=== PATIENT | female | born 1995 | race Caucasian/White ===

== ENCOUNTER 2022-02-23 22:04 | Emergency (ER) | payer OTHER, SELFPAY ==
--- NOTE | ~2022-02-23 | US_ITS ---
EXAMINATION: US OB <=14 wk fetus w TV DATE: 02/24/2022 02:23 INDICATION: Bleeding during first trimester TECHNIQUE: Real-time pelvic transabdominal and transvaginal ultrasound was performed. COMPARISON: None. FINDINGS: The uterus measures 8.1 x 5.4 x 4.1 cm. The endometrial thickness measures 11 mm. No intra uterine gestational sac is identified. The right ovary measures 1.6 x 2.0 x 2.1 cm. The left ovary m easures 3.4 x 2.8 x 2.8 cm. There is normal vascular flow in the ovaries. There is a small amount of free fluid in the pelvis. IMPRESSION: 1. of unknown location. Although no intrauterine gestational sac is seen, this may be due t o early gestation. If the patient is clinically stable, recommend followup with serial beta-hCG and u ltrasound. 2. Small alignment of free fluid in the pelvis of unclear etiology or significance. Reviewed, dictated and finalized at location B. IMPRESSION: 1. of unknown location. Although no intrauterine gestational sac is s een, this may be due to early gestation. If the patient is clinically stable, r ecommend followup with serial beta-hCG and ultrasound. 2. Small alignment of free fluid in the pelvis of unclear etiology or significa nce.
[2022-02-23 22:12] VITALS: BP 145/88; PULSE 87; RESP 18; TEMP 36.6; O2SAT 100
[2022-02-24] VITALS (25 sets, daily range): BP systolic 102–135; BP diastolic 57–76; PULSE 69–95; RESP 16–32; O2SAT 96–100
--- NOTE | 2022-02-24 00:08 | ED.GENADULT ---
HPI - General Adult General Chief complaint: Vaginal Bleeding Stated complaint: complications Time Seen by Provider: 02/23/22 23:55 Source: patient Mode of arrival: ambulatory Limitations: no limitations History of Present Illness HPI narrative: Patient is a 27 y/o female who presents to the ED with c/o vaginal spotting. Patient reports she had several positive home test last week. She developed slight lower abdominal cramping today. Then she also noticed vaginal spotting when she wiped her self after using the restroom. She placed a pad afterwards and noticed several drops of blood on the pad. She was seen in ED in [facility] and initially told that she was not via urine preg test. She was later told that her testing came back positive for . The pain and spotting continued, which prompted her to come to the ED here. She did take Tylenol RN RECOVERY which improved her pain. She also reports having urinary frequency and some occasional nausea, but denies vomiting, fever, hematuria, rectal bleeding, diarrhea, constipation. Patient has not seen an OBGYN yet for this or had an US, but is scheduled to see Dr. Kessler in [place], [place] on 03/04. . Related Data Allergies Allergy/AdvReac Type Severity Reaction Status Date / Time No Known Drug Allergies Allergy Unknown Verified 02/24/22 00:49 Review of Systems Review of Systems: CONSTITUTIONAL: Denies fever, chills. CARDIOVASCULAR: Denies chest pain. RESPIRATORY: Denies cough or dyspnea. GASTROINTESTINAL: Reports lower ABD cramping, nausea. Denies rectal bleeding, constipation, vomiting, or diarrhea. GENITOURINARY: Reports urinary frequency. Denies dysuria or hematuria. MUSCULOSKELETAL: Denies back pain. NEUROLOGIC: Denies numbness, tingling, or weakness. All systems reviewed & are unremarkable except as noted in HPI and below PMFSH Past Medical History Medical History (Updated 02/24/22 @ 04:16 by Guadalupe Brown PA-C) No pertinent past medical history Surgical History Surgical History (Updated 02/24/22 @ 00:23 by Guadalupe Brown PA-C) History of tonsillectomy and adenoidectomy Social History Social History (Updated 02/24/22 @ 00:23 by Guadalupe Brown PA-C) Smoking status: Never smoker Exam Narrative: GENERAL: Well appearing, morbidly obese, non-toxic, in no acute distress. HEAD: Normocephalic, atraumatic. NECK: Supple. No adenopathy, no masses. RESPIRATORY: Airway patent, respirations nonlabored. Clear to auscultation bilaterally, no rales, rhonchi, wheezing. CARDIOVASCULAR: Regular rate and rhythm without murmurs, rubs, or gallops. Peripheral pulses 2+ and equal bilaterally. ABDOMINAL: Soft, mild tenderness to palpation in suprapubic region, left side > right. Nondistended, no hepatosplenomegaly. Normoactive BS. MUSCULOSKELETAL: Moves all extremities. Strength/ROM intact without gross deformities or TTP. No edema. PELVIC: Normal external genitalia. Speculum exam with mild amount of dark red bleeding. No significant clots or tissue-like material seen. No hemorrhaging or pooling of blood. No vaginal discharge. Cervix does not appear open. No CMT. SKIN: Warm, dry, normal color. No rashes. NEURO: A&O X3. Speech clear. Cranial nerves II-XII grossly intact. Steady gait. No ataxic movements. PSYCHIATRIC: Appropriate mood and affect. Normal interaction. Course Consultations Consultation #1: Discussed case with Dr. Edgar Kessler, OBGYN, advised office will call to schedule to have beta repeated, possibly over the weekend. He will follow with patient as outpatient. Date: 02/24/22 Time: 04:15 Vital Signs Vital signs: Vital Signs Temperature 97.8 F 02/23/22 22:12 Pulse Rate 87 02/23/22 22:12 Respiratory Rate 18 02/23/22 22:12 Blood Pressure 145/88 H 02/23/22 22:12 Pulse Oximetry 100 02/23/22 22:12 Oxygen Delivery Room Air 02/23/22 22:12 Temperature 97.8 F 02/23/22 22:12 Pulse Rate 92 02/24/22 01:46
[2022-02-24 00:45] LABS: Basophils Absolute Auto 0.1 K/mm3 (0.0-0.1); Basophils Percent Auto 0.5 % (0.2-1.2); Eosinophils Absolute Auto 0.5 K/mm3 (0-0.3); Eosinophils Percent Auto 4.1 % (0-4.4); Hematocrit 40.1 % (37.0-47.0); Hemoglobin 12.9 g/dL (12.0-15.0); Immature Granulocyte Absolute 0.04 K/mm3 (0.00-0.031); Immature Granulocyte Percent A 0.4 % (0-0.5); Lymphocytes Absolute Auto 3.35 K/mm3 (0.9-3.2); Lymphocytes Percent Auto 30.6 % (18.3-44.2); Mean Corpuscular HGB Conc 32.2 g/dl (32-36); Mean Corpuscular Hemoglobin 26.3 pg (26-34); Mean Corpuscular Volume 81.8 fl (80-100); Mean Platelet Volume 10.3 fl (7.4-10.4); Monocytes Absolute Auto 0.8 K/mm3 (0.1-0.6); Monocytes Percent Auto 7.4 % (2.6-8.5); Neutrophils Absolute Auto 6.2 K/mm3 (1.3-6.7); Platelet Count Result 349 k/mm3 (150-375); Red Cell Distribution Width 14.5 % (11.5-14.5); White Blood Count 10.9 K/mm3 (4.5-10.0)
[2022-02-24 00:56] LABS: Alanine Aminotransferase 16 U/L (6-35); Alkaline Phosphatase 63 U/L (38-126); Anion Gap 7 mmol/L (8-16); Aspartate Amino Transferase 16 U/L (14-36); Bilirubin,Total 0.3 mg/dL (0.2-1.3); Blood Urea Nitrogen 5 mg/dL (7-17); Calcium 8.4 mg/dL (8.4-10.2); Carbon Dioxide 23 mmol/L (22-30); Chloride 107 mmol/L (98-107); Estimated CRCL calculation 193 ml/min; Estimated Glomerular Filt Rate > 60; Glucose 90 mg/dL (65-110); Potassium 3.9 mmol/L (3.4-5.0); Sodium 137 mmol/L (137-145)
[2022-02-24 01:04] LABS: Appearance Urine Clear (Clear); Bilirubin Urine Negative (Negative); Blood Urine 3+ (Negative); Color Urine Yellow (Yellow); Glucose Urine UA Negative (Negative); Ketones Urine Negative (Negative); Leukocyte Esterase Ur Negative LEU/UL (Negative); Nitrate Urine Negative (Negative); Protein Urine 1+ mg/dL (Negative); Specific Grav Ur 1.015 (1.001-1.035); Urobilinogen Urine 0.2 mg/dL (<2.0)
[2022-02-24 01:13] LABS: Beta HCG Quantitative 85.54 mIU/ML
[2022-02-24 01:21] LABS: Bacteria Urine Trace /hpf; Mucus Urine Rare /lpf; RBC Urine 21-50 /hpf (0-2); Squamous Epithelial Cell Urine Moderate /hpf (Few)
[2022-02-24 01:23] LABS: Add Urine Microscopic? YES
--- NOTE | 2022-02-24 01:25 | PC.NURSE ---
RN chaperoned ERPA during pelvic exam. Pt tolerated well.
[2022-02-24] MEDS: NITROFURANTOIN MONOHYD MACROCR 100 MG CAP PO (04:51)
== END 2022-02-24 04:59 | disposition home or self-care (01) ==
PROVIDERS: Physician Assistant; Emergency Provider Emergency Medicine
DX: O20.0 Threatened abortion (principal); O23.10 Infections of bladder in pregnancy, unspecified trimester; N30.01 Acute cystitis with hematuria; Z3A.00 Weeks of gestation of pregnancy not specified
CPT/HCPCS: 36415; 76801; 76817; 80053; 81001; 84702; 85025; 85461; 87086; 87088; 99284; A9270